=== PATIENT | female | born 1940 | race Caucasian/White ===

== ENCOUNTER → 2016-09-29 | Outpatient (CLI) | payer MEDICARE ==
[2016-09-29 13:01] LABS: ALBUMIN 3.6 g/dL (3.4-5.0); BILIRUBIN,TOTAL 0.3 mg/dL (0.1-1.0); CALCIUM, TOTAL 8.7 mg/dL (8.8-10.5); CREATININE 1.02 mg/dL (0.60-1.30); TOTAL PROTEIN, SERUM 6.9 g/dL (6.4-8.2)
[2016-09-29 13:02] LABS: EOSINOPHILS % (AUTO) 2.4 % (1.0-6.0); HEMATOCRIT 34.9 % (36-46); HEMOGLOBIN 10.7 g/dL (12.0-16.0); LYMPHOCYTES # (AUTO) 0.8 K/uL (1.0-4.8); LYMPHOCYTES % (AUTO) 15.6 % (22.0-44.0); MEAN CORPUSCULAR HGB CONC 30.5 G/dL (31.0-37.0); MEAN CORPUSCULAR VOLUME 85 fL (80-100); MONOCYTES # (AUTO) 0.5 K/uL (0.1-1.0); MONOCYTES % (AUTO) 9.8 % (2.0-9.0); NEUTROPHILS # (AUTO) 3.5 K/uL (1.8-7.7); NEUTROPHILS % (AUTO) 72.2 % (40.0-70.0); PLATELET COUNT (AUTO) 154 K/uL (150-450); RED CELL DISTRIBUTION WIDTH 33.7 % (11.5-14.5); WHITE BLOOD COUNT (AUTO) 4.9 K/uL (4.5-11.0)
[2016-09-29 13:27] LABS: RBC MORPHOLOGY COMMENT ABNORMAL RBC MORPH
== END | disposition home or self-care (01) ==
LOC: LABPV 10:27
PROVIDERS: ATTEND Internal Medicine Cardiovascular Disease
DX: I10 Essential (primary) hypertension (principal); I50.9 Heart failure, unspecified

== ENCOUNTER → 2019-04-30 | Outpatient (CLI) | payer MEDICARE | END | disposition home or self-care (01) | LOC: RADMN 08:21 | PROVIDERS: ATTEND Internal Medicine Cardiovascular Disease | DX: I11.0 Hypertensive heart disease with heart failure (principal); I50.9 Heart failure, unspecified; I42.9 Cardiomyopathy, unspecified | CPT/HCPCS: 78472; A9560 ==